=== PATIENT | male | born 1965 | race Hispanic/Latino ===

== ENCOUNTER 2017-12-10 08:56 | Inpatient (IN) | payer MEDICARE ==
[2017-12-10 09:23] VITALS: BMI 28.3
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
[2017-12-10] MEDS ORDERED: Vancomycin 1gm in NS 250ml 1 GM/250 ML BAG IVPB STA (09:59)
[2017-12-10] MEDS ORDERED: Piperacill/Tazo 4.5gm in NS 4.5 GM/100 ML BAG IVPB STA (09:59)
[2017-12-10 10:30] LABS: URINE BILIRUBIN NEGATIVE (NEGATIVE); URINE BLOOD LARGE (NEGATIVE); URINE GLUCOSE (UA) NEGATIVE (NEGATIVE); URINE LEUKOCYTE ESTERASE MODERATE Leu/uL (NEGATIVE); URINE PROTEIN 100 mg/dL (<30 mg/dL); URINE UROBILINOGEN 0.2 E.U./dL (<1 E.U./dL)
[2017-12-10 10:31] LABS: URINE APPEARANCE CLOUDY (CLEAR); URINE COLOR LIGHT YELLOW (YELLOW)
[2017-12-10 10:41] LABS: URINE BACTERIA MANY (NEG); URINE RBC TNTC /hpf (0-2)
[2017-12-10] MEDS ORDERED: Lactated Ringer's 1,000 ML IV SCH (10:45)
[2017-12-10 10:46] LABS: URINE AMORPHOUS SEDIMENT SMALL; URINE COARSE GRANULAR CAST TRACE /hpf (0-2)
[2017-12-10 10:47] LABS: URINE WBC 25 - 30 /hpf (0-6)
[2017-12-10 11:00] LABS: BASO # 0.01 K/mm3 (0.0-2.0); BASO % 0.1 % (0.0-3.0); EOS # 0.2 (0.0-0.7); EOS % 1.2 % (1.5-5.0); GRAN # 10.51 (1.4-6.5); GRAN % 78.2 % (50.0-68.0); HEMOGLOBIN 11.7 g/dL (14.0-18.0); LYMPH # 1.6 (1.2-3.4); LYMPH % 11.6 % (22.0-35.0); MEAN CORPUSCULAR HEMOGLOBIN 26.9 pg (25.0-35.0); MEAN CORPUSCULAR HGB CONC 32.4 g/dl (31.0-37.0); MEAN PLATELET VOLUME 8.7 fl (7.0-11.0); MONO # 1.2 (0.1-0.6); MONO % 8.9 % (1.0-6.0); RBC 4.35 10^6/uL (3.5-6.1); RED CELL DISTRIBUTION WIDTH 16.5 % (11.5-14.5); WHITE BLOOD COUNT 13.4 10^3/ul (4.5-11.0)
[2017-12-10 11:13] LABS: VENOUS BLOOD GAS BASE EXCESS 1.2 mmol/L (0.0-2.0); VENOUS BLOOD GAS PO2 39 mm/Hg (30-55); VENOUS BLOOD PH 7.41 (7.32-7.43)
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
[2017-12-10 11:37] LABS: ALB/GLOB RATIO 0.9 (1.1-1.8); ALBUMIN 3.1 g/dL (3.0-4.8); ALT/SGPT 37 U/L (7-56); AST/SGOT 25 U/L (17-59); BLOOD UREA NITROGEN 20 mg/dL (7-21); CALCIUM 8.4 mg/dL (8.4-10.5); GFR AFRICAN-AMERICAN > 60; GFR NON-AFRICAN AMERICAN > 60
[2017-12-10 11:48] LABS: TROPONIN I < 0.01 ng/mL
[2017-12-10] MEDS ORDERED: Vancomycin 500mg in NS 500 MG/100 ML BAG IVPB SCH (12:45)
--- NOTE | 2017-12-10 14:49 | CT ---
PROCEDURE: CT Abdomen and Pelvis with contrast HISTORY: Scrotal ulcer COMPARISON: None. TECHNIQUE: Contrast dose: 150 cc of Omni 350 Radiation dose: Total exam DLP = 992 mGy-cm. This CT exam was performed using one or more of the following dose reduction techniques: Automated exposure control, adjustment of the mA and/or kV according to patient size, and/or use of iterative reconstruction technique. FINDINGS: LOWER THORAX: Unremarkable. LIVER: Unremarkable. No gross lesion or ductal dilatation. GALLBLADDER AND BILE DUCTS: Gallbladder removed. Dilated common duct consistent with prior cholecystectomy. PANCREAS: Unremarkable. No gross lesion or ductal dilatation. SPLEEN: Unremarkable. ADRENALS: Unremarkable. No mass. KIDNEYS AND URETERS: Unremarkable. No hydronephrosis. No solid mass. VASCULATURE: Unremarkable. No aortic aneurysm. BOWEL: Unremarkable. No obstruction. No gross mural thickening. APPENDIX: Normal appendix. PERITONEUM: Unremarkable. No free fluid. No free air. LYMPH NODES: Unremarkable. No enlarged lymph nodes. BLADDER: Suprapubic catheter. REPRODUCTIVE: There is some skin thickening in the scrotum but no discrete abscess. There is a large amount of subcutaneous inflammation in the right gluteal region without a discrete abscess. BONES: No acute fracture. OTHER FINDINGS: None. IMPRESSION: There is some skin thickening in the scrotum but no discrete abscess. There is a large amount of subcutaneous inflammation in the right gluteal region without a discrete abscess.
--- NOTE | 2017-12-10 17:26 | CARD ---
APPROVED REPORT EKG Measurement Heart [id number] <Conclusion> Normal sinus rhythm Prolonged QT Abnormal ECG
[2017-12-10] MEDS ORDERED: Potassium Chloride 20 mEq ER Tab PO ONE (17:52)
[2017-12-10] MEDS ORDERED: Pneumococcal 23-Valent Vaccine IM ONE (18:02)
[2017-12-10] MEDS ORDERED: Influenza Vaccine 60 mcg/0.5 mL SYR (4YR UP) IM ONE (18:02)
[2017-12-10] MEDS: Sodium Chloride 0.45% 1,000 ML IV SCH (18:21)
[2017-12-10] MEDS: Piperacillin/Tazobact 3.375 gm 100 ML IVPB SCH (18:24)
[2017-12-10] MEDS: Nystatin 100,000 Units/gm Topical Pow(15 gm) TOP PRN (20:49)
[2017-12-10] MEDS: Alum-Mag Hydrox-Simethicone Susp (30 mL) PO SCH (21:26)
[2017-12-11] MEDS: Piperacillin/Tazobact 3.375 gm 100 ML IVPB SCH ×5 (00:35→23:18)
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
[2017-12-11 07:19] LABS: HEMOGLOBIN 10.8 g/dL (14.0-18.0); MEAN CELL VOLUME 83.6 fl (80.0-105.0); MEAN CORPUSCULAR HEMOGLOBIN 26.1 pg (25.0-35.0); MEAN CORPUSCULAR HGB CONC 31.2 g/dl (31.0-37.0); MEAN PLATELET VOLUME 8.7 fl (7.0-11.0); RBC 4.14 10^6/uL (3.5-6.1); RED CELL DISTRIBUTION WIDTH 16.6 % (11.5-14.5); WHITE BLOOD COUNT 11.9 10^3/ul (4.5-11.0)
[2017-12-11 07:54] LABS: ALB/GLOB RATIO 0.9 (1.1-1.8); ALBUMIN 3.1 g/dL (3.0-4.8); ALT/SGPT 44 U/L (7-56); AST/SGOT 35 U/L (17-59); BLOOD UREA NITROGEN 13 mg/dL (7-21); GFR AFRICAN-AMERICAN > 60; GFR NON-AFRICAN AMERICAN > 60
--- NOTE | 2017-12-11 08:46 | CP.PCM.PN ---
Subjective - Date & Time of Evaluation Date of Evaluation: 12/11/17 Time of Evaluation: 08:43 - Subjective Subjective: Surgery: Dr. Nelson Patient reports feeling much better than yesterday. Still with some sweats but no fever or chills. He denies n/v. NO acute events overnight. Objective - Vital Signs/Intake and Output Vital Signs (last 24 hours): Temp Pulse Resp BP Pulse Ox 98.2 F 76 20 129/75 94 L 12/11/17 06:00 12/10/17 17:38 12/11/17 06:00 12/10/17 17:38 12/11/17 06:00 Intake and Output: 12/11/17 12/11/17 06:59 18:59 Intake Total 1500 Output Total 1125 Balance 375 - Medications Medications: Current Medications Acetaminophen (Tylenol 325mg Tab) 650 mg PO Q4H PRN PRN Reason: Pain, moderate (4-7) Last Admin: 12/10/17 20:48 Dose: 650 mg Al Hydrox/Mg Hydrox/Simethicone (Maalox Plus 30 Ml) 30 ml PO HS [facility] Last Admin: 12/10/17 21:26 Dose: 30 ml Baclofen (Lioresal) 40 mg PO QID [facility] Last Admin: 12/10/17 21:29 Dose: 40 mg Diphenhydramine HCl (Benadryl) 50 mg PO HS PRN PRN Reason: Insomnia Last Admin: 12/10/17 20:48 Dose: 50 mg Piperacillin Sod/Tazobactam Sod (Zosyn 3.375 In Ns 100ml) 100 mls @ 200 mls/hr IVPB Q6 [facility] PRN Reason: Protocol Stop: 12/17/17 18:01 Last Admin: 12/11/17 06:45 Dose: 200 mls/hr Sodium Chloride (Sodium Chloride 0.45%) 1,000 mls @ 40 mls/hr IV .Q24H [facility] Last Admin: 12/10/17 18:21 Dose: 40 mls/hr Vancomycin HCl 1.5 gm/ Sodium (Chloride) 250 mls @ 167 mls/hr IVPB Q12H [facility] PRN Reason: Protocol Last Admin: 12/11/17 08:05 Dose: 167 mls/hr Nystatin (Nystop Topical Powder) 0 gm TOP DAILY PRN PRN Reason: Rash Last Admin: 12/10/17 20:49 Dose: 1 appl Nystatin (Nystop Topical Powder) 0 gm TOP Q8H [facility] Ondansetron HCl (Zofran Inj) 4 mg IVP Q4H PRN PRN Reason: Nausea/Vomiting Last Admin: 12/10/17 18:40 Dose: 4 mg Rivaroxaban (Xarelto) 15 mg PO DAILY [facility] PRN Reason: Protocol Sertraline HCl (Zoloft) 200 mg PO DAILY [facility] - Labs Labs: 12/11/17 07:00 12/11/17 07:00 - Constitutional Appears: Non-toxic, No Acute Distress - Head Exam Head Exam: ATRAUMATIC, NORMOCEPHALIC - Eye Exam Eye Exam: EOMI, Normal appearance - ENT Exam ENT Exam: Mucous Membranes Moist - Respiratory Exam Respiratory Exam: NORMAL BREATHING PATTERN. absent: Respiratory Distress - Cardiovascular Exam Cardiovascular Exam: REGULAR RHYTHM. absent: Tachycardia - GI/Abdominal Exam GI & Abdominal Exam: Soft. absent: Distended, Tenderness Additional comments: suprapubic catheter in place, no drainage LLQ colostomy with soft stool output Mucous fistula pink patent and nonproductive - Back Exam Additional comments: scrotum and perineum excoriations improved with nystatin powder, no abscess palpated - Neurological Exam Neurological Exam: Alert, Awake - Psychiatric Exam Psychiatric exam: Normal Affect, Normal Mood Assessment and Plan - Assessment and Plan (Free Text) Assessment: 52 y/o male w/ UTI and perineum excoriations Plan: -keep perineum clean and dry, nystatin powder to area -turn Q2 -cont abx -no acute surgical intervention at this time -medical management per primary -further recs per Dr. Nelson [facility] PGY3
[2017-12-11] MEDS: Nystatin 100,000 Units/gm Topical Pow(15 gm) TOP PRN (09:28)
[2017-12-11] MEDS ORDERED: Potassium Chloride 20 mEq ER Tab PO ONE (12:29)
[2017-12-11] MEDS: Nystatin 100,000 Units/gm Topical Pow(15 gm) TOP SCH ×2 (13:22→21:08)
--- NOTE | 2017-12-11 14:59 | PN ---
DATE: SUBJECTIVE: I saw him sitting up in bed. He is eating his lunch. He is feeling well. No complaints. His are coming in. He is getting IV antibiotics. He is in good spirits. He is in no pain. PHYSICAL EXAMINATION: VITAL SIGNS: He is a 98.2 temperature, 20 respiratory rate, 129/75 blood pressure, 94% O2 sat on room air. HEENT: Head is atraumatic, normocephalic. Throat is moist. NECK: Supple. HEART: Regular rate. LUNGS: Clear to auscultation. ABDOMEN: Soft, obese, nontender. EXTREMITIES: No edema. SKIN: He has got a scrotal redness and inflammation. MEDICATIONS: He is on Benadryl, Lioresal, Maalox, nystatin, IV fluids, Tylenol, vancomycin IV, Xarelto, Zofran, Zoloft, and Zosyn IV. He has a urine that is positive. He has a 139 sodium; potassium of 3.5, I ordered potassium for him; BUN 13; creatinine 0.9; GFR is greater than 60; sugar is 115; calcium is 9. Total bilirubin is 1.2, AST is 35, ALT is 44, alkaline [id number]. Troponin I less than 0.01. Total protein 6.8. He has 11.9 white count, it is coming down, it was 13.4, doing better; 10.8 hemoglobin; 34.6 hematocrit with 196 platelets. He had a gram-positive cocci, gram-negative rods in the urine. He is being seen by Surgery and Infectious Disease. Urology was consulted. We will continue aggressive treatment and care with him with his UTI and his scrotal wound. Saeed Nettles DO MTDFeng
[2017-12-11] MEDS ORDERED: Zinc Oxide Topical 40% Oint (Desitin) TOP PRN (16:33)
[2017-12-11] MEDS: Sodium Chloride 0.45% 1,000 ML IV SCH (17:59)
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
[2017-12-11] MEDS: Alum-Mag Hydrox-Simethicone Susp (30 mL) PO SCH (21:08)
[2017-12-12] MEDS: Piperacillin/Tazobact 3.375 gm 100 ML IVPB SCH ×3 (05:45→18:01)
--- NOTE | 2017-12-12 11:32 | CP.PCM.PN ---
Subjective - Date & Time of Evaluation Date of Evaluation: 12/12/17 Time of Evaluation: 11:29 - Subjective Subjective: Surgery: Dr. Nelson Patient feeling better. Asking when he can be discharged. Patient reports local perineal care being done. Denies f/c/n/v. Objective - Vital Signs/Intake and Output Vital Signs (last 24 hours): Temp Pulse Resp BP Pulse Ox 98.4 F 79 20 129/75 95 12/12/17 06:00 12/12/17 06:00 12/12/17 06:00 12/10/17 17:38 12/12/17 06:00 Intake and Output: 12/12/17 12/12/17 06:59 18:59 Intake Total Output Total Balance - Medications Medications: Current Medications Acetaminophen (Tylenol 325mg Tab) 650 mg PO Q4H PRN PRN Reason: Pain, moderate (4-7) Last Admin: 12/10/17 20:48 Dose: 650 mg Al Hydrox/Mg Hydrox/Simethicone (Maalox Plus 30 Ml) 30 ml PO HS [facility] Last Admin: 12/11/17 21:08 Dose: 30 ml Baclofen (Lioresal) 40 mg PO QID [facility] Last Admin: 12/12/17 09:28 Dose: 40 mg Diphenhydramine HCl (Benadryl) 50 mg PO HS PRN PRN Reason: Insomnia Last Admin: 12/10/17 20:48 Dose: 50 mg Piperacillin Sod/Tazobactam Sod (Zosyn 3.375 In Ns 100ml) 100 mls @ 200 mls/hr IVPB Q6 [facility] PRN Reason: Protocol Stop: 12/17/17 18:01 Last Admin: 12/12/17 05:45 Dose: 200 mls/hr Sodium Chloride (Sodium Chloride 0.45%) 1,000 mls @ 40 mls/hr IV .Q24H [facility] Last Admin: 12/11/17 17:59 Dose: Not Given Vancomycin HCl 1.5 gm/ Sodium (Chloride) 250 mls @ 167 mls/hr IVPB Q12H [facility] PRN Reason: Protocol Last Admin: 12/12/17 09:27 Dose: 167 mls/hr Nystatin (Nystop Topical Powder) 0 gm TOP DAILY PRN PRN Reason: Rash Last Admin: 12/11/17 09:28 Dose: 1 appl Nystatin (Nystop Topical Powder) 0 gm TOP Q8H [facility] Last Admin: 12/11/17 21:08 Dose: 1 applic Ondansetron HCl (Zofran Inj) 4 mg IVP Q4H PRN PRN Reason: Nausea/Vomiting Last Admin: 12/10/17 18:40 Dose: 4 mg Petrolatum (Desitin Maximum Strength Topical 40% Oint) 0 gm TOP Q4H PRN PRN Reason: Rash Rivaroxaban (Xarelto) 15 mg PO DAILY [facility] PRN Reason: Protocol Last Admin: 12/12/17 09:28 Dose: 15 mg Sertraline HCl (Zoloft) 200 mg PO DAILY [facility] Last Admin: 12/12/17 09:28 Dose: 200 mg - Labs Labs: 12/11/17 07:00 12/11/17 07:00 - Constitutional Appears: Non-toxic, No Acute Distress - Head Exam Head Exam: ATRAUMATIC, NORMOCEPHALIC - Eye Exam Eye Exam: EOMI, Normal appearance - ENT Exam ENT Exam: Mucous Membranes Moist - Respiratory Exam Respiratory Exam: NORMAL BREATHING PATTERN. absent: Respiratory Distress - Cardiovascular Exam Cardiovascular Exam: REGULAR RHYTHM. absent: Tachycardia - GI/Abdominal Exam Additional comments: suprapubic catheter no leakage colostomy functioning mucous fistula pink patent - Rectal Exam Additional comments: perineum remains moderate excoriated no fluid collection palpable in scrotum or perineum blisters noted to perineum, unruptured Assessment and Plan - Assessment and Plan (Free Text) Assessment: 52 y/o male with UTI and scrotal/perineum excoriation Plan: -cont powder and desitin cream to perineum BID -keep area clean and dry -again no fluid collection palpable for drainage, CT scan reviewed and no definite fluid collection visualized. Suprapubic gonzalez noted with balloon expanded. -cont abx -reg diet -no surgical intervention at this time -d/w Dr. Omar Perez PGY3
[2017-12-12] MEDS: Nystatin 100,000 Units/gm Topical Pow(15 gm) TOP SCH ×4 (14:43→22:00)
--- NOTE | 2017-12-12 15:45 | PN ---
DATE: SUBJECTIVE: I saw him resting comfortably in bed. IV fluids are running. He has not been out of bed to chair yet. He is eating his breakfast. He is in good spirits. No pain. MEDICATIONS: He is on Benadryl, Desitin, Lioresal, Maalox, nystatin powder, IV fluids, Tylenol, vancomycin IV, Xarelto, Zofran, Zoloft, and Zosyn IV. PHYSICAL EXAMINATION: VITAL SIGNS: He has 98.4 temperature, 79 pulse, 20 respiratory rate, 95% O2 sat on room air. HEENT: Head is atraumatic, normocephalic. HEART: Regular rate. LUNGS: Decreased breath sounds, but clear. ABDOMEN: Soft, obese, nontender. Positive bowel sounds. EXTREMITIES: Paralyzed, but no edema. Also, his groin has got a possible fluid collection. Dr. Ayoub wants Surgery to put a needle on that and aspirate. We will see if they could arrange that. LABORATORY DATA: He has an 11.9 white count, better; 10.8 hemoglobin; 34.6 hematocrit; 496 platelets, is improving. Sodium 139; potassium of 3.5, we have given some potassium; BUN 13; creatinine 0.9; GFR is greater than 60; sugar is 115; calcium is 9. Total bilirubin is 1.2, AST is 35, ALT is 44, alkaline phosphatase 126. He has a 6.8 total protein. He does have a urinary tract infection. He is being seen by Infectious Disease and Surgery, and we will continue aggressive treatment and care on this nice man, Сергей Damico. Saeed Nettles DO
[2017-12-12] MEDS: Nystatin 100,000 Units/gm Topical Pow(15 gm) TOP PRN (17:42)
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
[2017-12-12] MEDS: Sodium Chloride 0.45% 1,000 ML IV SCH (18:01)
[2017-12-12] MEDS: Alum-Mag Hydrox-Simethicone Susp (30 mL) PO SCH (21:28)
[2017-12-13] MEDS: Piperacillin/Tazobact 3.375 gm 100 ML IVPB SCH ×4 (00:19→18:18)
[2017-12-13] MEDS: Nystatin 100,000 Units/gm Topical Pow(15 gm) TOP SCH ×3 (05:55→21:23)
[2017-12-13 07:26] LABS: HEMOGLOBIN 10.6 g/dL (14.0-18.0); MEAN CELL VOLUME 84.1 fl (80.0-105.0); MEAN CORPUSCULAR HEMOGLOBIN 26.4 pg (25.0-35.0); MEAN CORPUSCULAR HGB CONC 31.4 g/dl (31.0-37.0); MEAN PLATELET VOLUME 8.6 fl (7.0-11.0); RBC 4.02 10^6/uL (3.5-6.1); RED CELL DISTRIBUTION WIDTH 16.4 % (11.5-14.5); WHITE BLOOD COUNT 11.8 10^3/ul (4.5-11.0)
[2017-12-13 07:31] LABS: ALB/GLOB RATIO 0.8 (1.1-1.8); ALBUMIN 3.2 g/dL (3.0-4.8); ALT/SGPT 42 U/L (7-56); AST/SGOT 36 U/L (17-59); BLOOD UREA NITROGEN 15 mg/dL (7-21); CALCIUM 9.1 mg/dL (8.4-10.5); GFR AFRICAN-AMERICAN > 60; GFR NON-AFRICAN AMERICAN 53
--- NOTE | 2017-12-13 09:26 | CP.PCM.PN ---
Subjective - Date & Time of Evaluation Date of Evaluation: 12/13/17 Time of Evaluation: 09:23 - Subjective Subjective: Surgery PT s&e. NAEON. Denies scrotal pain. Denies F/C/N/V/D/CP/SOB. Unable to ambulate. Objective - Vital Signs/Intake and Output Vital Signs (last 24 hours): Temp Pulse Resp BP Pulse Ox 97.8 F 78 18 129/75 95 12/12/17 16:17 12/12/17 16:17 12/12/17 16:17 12/10/17 17:38 12/12/17 06:00 Intake and Output: 12/13/17 12/13/17 06:59 18:59 Intake Total 1860 Output Total 1100 Balance 760 - Medications Medications: Current Medications Acetaminophen (Tylenol 325mg Tab) 650 mg PO Q4H PRN PRN Reason: Pain, moderate (4-7) Last Admin: 12/10/17 20:48 Dose: 650 mg Al Hydrox/Mg Hydrox/Simethicone (Maalox Plus 30 Ml) 30 ml PO HS [facility] Last Admin: 12/12/17 21:28 Dose: 30 ml Baclofen (Lioresal) 40 mg PO QID [facility] Last Admin: 12/12/17 21:29 Dose: 40 mg Diphenhydramine HCl (Benadryl) 50 mg PO HS PRN PRN Reason: Insomnia Last Admin: 12/12/17 21:29 Dose: 50 mg Piperacillin Sod/Tazobactam Sod (Zosyn 3.375 In Ns 100ml) 100 mls @ 200 mls/hr IVPB Q6 [facility] PRN Reason: Protocol Stop: 12/17/17 18:01 Last Admin: 12/13/17 05:56 Dose: 200 mls/hr Sodium Chloride (Sodium Chloride 0.45%) 1,000 mls @ 40 mls/hr IV .Q24H [facility] Last Admin: 12/12/17 18:01 Dose: Not Given Vancomycin HCl 1.5 gm/ Sodium (Chloride) 250 mls @ 167 mls/hr IVPB Q12H [facility] PRN Reason: Protocol Last Admin: 12/13/17 08:33 Dose: 167 mls/hr Nystatin (Nystop Topical Powder) 0 gm TOP DAILY PRN PRN Reason: Rash Last Admin: 12/12/17 17:42 Dose: 1 appl Nystatin (Nystop Topical Powder) 0 gm TOP Q8H [facility] Last Admin: 12/13/17 05:55 Dose: 1 applic Ondansetron HCl (Zofran Inj) 4 mg IVP Q4H PRN PRN Reason: Nausea/Vomiting Last Admin: 12/10/17 18:40 Dose: 4 mg Petrolatum (Desitin Maximum Strength Topical 40% Oint) 0 gm TOP Q4H PRN PRN Reason: Rash Last Admin: 12/12/17 17:44 Dose: 1 applic Rivaroxaban (Xarelto) 15 mg PO DAILY [facility] PRN Reason: Protocol Last Admin: 12/12/17 09:28 Dose: 15 mg Sertraline HCl (Zoloft) 200 mg PO DAILY [facility] Last Admin: 12/12/17 09:28 Dose: 200 mg - Labs Labs: 12/13/17 06:40 12/13/17 06:40 - Constitutional Appears: No Acute Distress, Chronically Ill - Head Exam Head Exam: ATRAUMATIC, NORMAL INSPECTION, NORMOCEPHALIC - Eye Exam Eye Exam: EOMI, Normal appearance, PERRL Pupil Exam: NORMAL ACCOMODATION, PERRL - ENT Exam ENT Exam: Mucous Membranes Moist, Normal Exam - Neck Exam Neck Exam: Full ROM, Normal Inspection. absent: Lymphadenopathy - Respiratory Exam Respiratory Exam: Clear to Ausculation Bilateral, NORMAL BREATHING PATTERN - Cardiovascular Exam Cardiovascular Exam: REGULAR RHYTHM, +S1, +S2. absent: Murmur - GI/Abdominal Exam GI & Abdominal Exam: Soft, Normal Bowel Sounds. absent: Distended, Firm, Guarding, Tenderness - Rectal Exam Rectal Exam: NORMAL INSPECTION - Exam Exam: Scrotal Swelling. absent: NORMAL INSPECTION (Suprapubic catheter in place) External exam: Erythema (Non fluctuant. MIld eryhtema. Non tender. ) - Extremities Exam Extremities Exam: absent: Full ROM - Back Exam Back Exam: NORMAL INSPECTION - Neurological Exam Neurological Exam: Alert, Awake, Oriented x3. absent: Normal Gait - Psychiatric Exam Psychiatric exam: Normal Affect, Normal Mood - Skin Skin Exam: Dry, Erythema, Intact, Warm Assessment and Plan - Assessment and Plan (Free Text) Assessment: 52 y/o male with UTI and scrotal/perineum excoriation: Improving Plan: -cont w Nystatin powder and desitin cream to perineum BID -keep area clean and dry -again no fluid collection palpable for drainage, CT scan reviewed and no definite fluid collection visualized. Suprapubic gonzalez noted with balloon expanded. -cont abx -reg diet -no surgical intervention at this time -Will d/w Dr. Nelson
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
[2017-12-13] MEDS: Sodium Chloride 0.45% 1,000 ML IV SCH (16:14)
[2017-12-13] MEDS: Alum-Mag Hydrox-Simethicone Susp (30 mL) PO SCH (21:24)
[2017-12-14] MEDS: Piperacillin/Tazobact 3.375 gm 100 ML IVPB SCH ×4 (00:43→18:49)
[2017-12-14 07:13] LABS: HEMOGLOBIN 10.7 g/dL (14.0-18.0); MEAN CELL VOLUME 84.8 fl (80.0-105.0); MEAN CORPUSCULAR HEMOGLOBIN 26.2 pg (25.0-35.0); MEAN CORPUSCULAR HGB CONC 30.9 g/dl (31.0-37.0); MEAN PLATELET VOLUME 8.6 fl (7.0-11.0); RBC 4.08 10^6/uL (3.5-6.1); RED CELL DISTRIBUTION WIDTH 16.4 % (11.5-14.5); WHITE BLOOD COUNT 12.3 10^3/ul (4.5-11.0)
[2017-12-14 07:36] LABS: ALB/GLOB RATIO 0.8 (1.1-1.8); ALBUMIN 3.4 g/dL (3.0-4.8); ALT/SGPT 39 U/L (7-56); AST/SGOT 28 U/L (17-59); BLOOD UREA NITROGEN 13 mg/dL (7-21); GFR AFRICAN-AMERICAN > 60; GFR NON-AFRICAN AMERICAN 58
--- NOTE | 2017-12-14 08:30 | CP.PCM.PN ---
Subjective - Date & Time of Evaluation Date of Evaluation: 12/14/17 Time of Evaluation: 08:27 - Subjective Subjective: Surgery PT s&e. NAEON. Denies F/V/D/CP/SOB. Reports chills. Pain controlled. Objective - Vital Signs/Intake and Output Vital Signs (last 24 hours): Temp Pulse Resp BP Pulse Ox 98 F 75 22 127/61 96 12/14/17 07:31 12/14/17 07:31 12/14/17 07:31 12/14/17 07:31 12/14/17 07:31 Intake and Output: 12/14/17 12/14/17 06:59 18:59 Intake Total 1080 Output Total 1800 Balance -720 - Medications Medications: Current Medications Acetaminophen (Tylenol 325mg Tab) 650 mg PO Q4H PRN PRN Reason: Pain, moderate (4-7) Last Admin: 12/10/17 20:48 Dose: 650 mg Al Hydrox/Mg Hydrox/Simethicone (Maalox Plus 30 Ml) 30 ml PO HS [facility] Last Admin: 12/13/17 21:24 Dose: 30 ml Baclofen (Lioresal) 40 mg PO QID [facility] Last Admin: 12/13/17 21:22 Dose: 40 mg Diphenhydramine HCl (Benadryl) 50 mg PO HS PRN PRN Reason: Insomnia Last Admin: 12/14/17 00:16 Dose: 50 mg Piperacillin Sod/Tazobactam Sod (Zosyn 3.375 In Ns 100ml) 100 mls @ 200 mls/hr IVPB Q6 [facility] PRN Reason: Protocol Stop: 12/17/17 18:01 Last Admin: 12/14/17 06:04 Dose: 200 mls/hr Sodium Chloride (Sodium Chloride 0.45%) 1,000 mls @ 40 mls/hr IV .Q24H [facility] Last Admin: 12/13/17 16:14 Dose: 40 mls/hr Vancomycin HCl 1.5 gm/ Sodium (Chloride) 250 mls @ 167 mls/hr IVPB Q12H [facility] PRN Reason: Protocol Last Admin: 12/13/17 08:33 Dose: 167 mls/hr Nystatin (Nystop Topical Powder) 0 gm TOP DAILY PRN PRN Reason: Rash Last Admin: 12/12/17 17:42 Dose: 1 appl Nystatin (Nystop Topical Powder) 0 gm TOP Q8H [facility] Last Admin: 12/13/17 21:23 Dose: 1 applic Ondansetron HCl (Zofran Inj) 4 mg IVP Q4H PRN PRN Reason: Nausea/Vomiting Last Admin: 12/10/17 18:40 Dose: 4 mg Petrolatum (Desitin Maximum Strength Topical 40% Oint) 0 gm TOP Q4H PRN PRN Reason: Rash Last Admin: 12/12/17 17:44 Dose: 1 applic Rivaroxaban (Xarelto) 15 mg PO DAILY [facility] PRN Reason: Protocol Last Admin: 12/13/17 10:44 Dose: 15 mg Sertraline HCl (Zoloft) 200 mg PO DAILY [facility] Last Admin: 12/13/17 10:44 Dose: 200 mg - Labs Labs: 12/14/17 06:30 12/14/17 06:30 - Constitutional Appears: No Acute Distress - Head Exam Head Exam: ATRAUMATIC, NORMAL INSPECTION, NORMOCEPHALIC - Eye Exam Eye Exam: EOMI, Normal appearance, PERRL Pupil Exam: NORMAL ACCOMODATION, PERRL - ENT Exam ENT Exam: Mucous Membranes Moist, Normal Exam - Neck Exam Neck Exam: Full ROM, Normal Inspection. absent: Lymphadenopathy - Respiratory Exam Respiratory Exam: Clear to Ausculation Bilateral, NORMAL BREATHING PATTERN - Cardiovascular Exam Cardiovascular Exam: REGULAR RHYTHM, +S1, +S2. absent: Murmur - GI/Abdominal Exam GI & Abdominal Exam: Soft, Normal Bowel Sounds. absent: Distended, Firm, Guarding, Rigid, Tenderness - Rectal Exam Rectal Exam: NORMAL INSPECTION. absent: Black Stool, Bloody Stool, Hemorrhoids , Fecal Impaction - Exam Exam: absent: NORMAL INSPECTION Additional comments: Scrotum: INdurated 3x4cm. No fluctuant. No eryhtema. - Extremities Exam Extremities Exam: Normal Inspection. absent: Full ROM - Back Exam Back Exam: NORMAL INSPECTION - Neurological Exam Neurological Exam: Alert, Awake, Oriented x3. absent: Normal Gait - Psychiatric Exam Psychiatric exam: Normal Affect, Normal Mood - Skin Skin Exam: Dry, Intact, Normal Color, Warm. absent: Erythema Assessment and Plan - Assessment and Plan (Free Text) Assessment: 52 y/o male with UTI and scrotal/perineum induration: Improving. No discharge, no fluctuant Urine cx: Ecoli, MRSA Plan: -Local wound care -cont w Nystatin powder and desitin cream to perineum -keep area clean and dry -again no fluid collection palpable for drainage, CT scan reviewed and no definite fluid collection visualized. Suprapubic gonzalez noted with balloon expanded. -cont abx -reg diet -no surgical intervention at this time d/w Dr. Nelson
[2017-12-14] MEDS: Nystatin 100,000 Units/gm Topical Pow(15 gm) TOP SCH ×2 (14:57→22:48)
--- NOTE | 2017-12-14 15:06 | PN ---
DATE: 12/14/2017 SUBJECTIVE: I saw him in his bed this morning. He is easily arousable and he is confused this morning. He did not know where he was after reoriented to [place]. He is pleasant. No pain. He is hungry. OBJECTIVE: VITAL SIGNS: Temperature 98, 75 pulse, 127/61 blood pressure, 22 respiratory rate, 96% O2 sat on room air. HEENT: His head is atraumatic, normocephalic. Extraocular muscles are intact. Throat is moist. NECK: Supple. HEART: Regular rate. LUNGS: Decreased breath sounds, but clear. ABDOMEN: Soft, obese. EXTREMITIES: No edema groin cellulitis. MEDICATIONS: He is currently on Benadryl, Desitin, Lioresal, Maalox, nystatin, IV fluids, Tylenol, vancomycin IV, Xarelto, Zofran, Zoloft, and Zosyn. LABORATORY DATA: He had blood tests. He has a 12.3 white count, still elevated white count He has 10.7 hemoglobin, 34.6 hematocrit with 309 platelets. He has 144 sodium, potassium of 3.6. BUN 13, creatinine 1.3. GFR is 68. Sugar is 94. Calcium is 9. Total bili is 0.9, AST is 28, ALT is 39, alk phos is 127, total protein is 7.4. Urine was positive for urinary tract infections and negative HIV, nonreactive. Overall, his urine culture showed methicillin-resistant Staphylococcus aureus and E. coli. He is confused. I called in Neurology and Psychiatry to help us. He has already been seen by Infectious Disease and Surgery. We will continue with aggressive treatment and care. We will check his labs tomorrow. Also, this change in mentation and confusion . Saeed Nettles DO [facility]
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
[2017-12-14] MEDS: Sodium Chloride 0.45% 1,000 ML IV SCH (21:17)
[2017-12-14] MEDS: Alum-Mag Hydrox-Simethicone Susp (30 mL) PO SCH (22:07)
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
[2017-12-15] MEDS: Piperacillin/Tazobact 3.375 gm 100 ML IVPB SCH ×5 (00:45→19:15)
[2017-12-15] MEDS: Nystatin 100,000 Units/gm Topical Pow(15 gm) TOP SCH ×3 (06:11→22:17)
[2017-12-15 06:32] LABS: HEMOGLOBIN 10.2 g/dL (14.0-18.0); MEAN CELL VOLUME 84.2 fl (80.0-105.0); MEAN CORPUSCULAR HEMOGLOBIN 26.4 pg (25.0-35.0); MEAN CORPUSCULAR HGB CONC 31.3 g/dl (31.0-37.0); MEAN PLATELET VOLUME 8.4 fl (7.0-11.0); RBC 3.87 10^6/uL (3.5-6.1); RED CELL DISTRIBUTION WIDTH 16.4 % (11.5-14.5); WHITE BLOOD COUNT 11.5 10^3/ul (4.5-11.0)
[2017-12-15 07:10] LABS: ALB/GLOB RATIO 0.8 (1.1-1.8); ALBUMIN 3.2 g/dL (3.0-4.8); ALT/SGPT 35 U/L (7-56); AST/SGOT 32 U/L (17-59); BLOOD UREA NITROGEN 12 mg/dL (7-21); CALCIUM 8.8 mg/dL (8.4-10.5); GFR AFRICAN-AMERICAN > 60; GFR NON-AFRICAN AMERICAN > 60
[2017-12-15 07:42] VITALS: RESP 20
[2017-12-15] MEDS ORDERED: Potassium Chloride 20 mEq ER Tab PO ONE (07:56)
--- NOTE | 2017-12-15 08:33 | CT ---
PROCEDURE: CT HEAD WITHOUT CONTRAST. HISTORY: baseline mental evaluation COMPARISON: None available. TECHNIQUE: Axial computed tomography images were obtained through the head/brain without intravenous contrast. Radiation dose: Total exam DLP = 1778 mGy-cm. This CT exam was performed using one or more of the following dose reduction techniques: Automated exposure control, adjustment of the mA and/or kV according to patient size, and/or use of iterative reconstruction technique. FINDINGS: HEMORRHAGE: No intracranial hemorrhage. BRAIN: No mass effect or edema. No atrophy or chronic microvascular ischemic changes. VENTRICLES: Unremarkable. No hydrocephalus. CALVARIUM: Unremarkable. PARANASAL SINUSES: Unremarkable as visualized. No significant inflammatory changes. MASTOID AIR CELLS: Unremarkable as visualized. No inflammatory changes. OTHER FINDINGS: None. IMPRESSION: No acute intracranial findings
--- NOTE | 2017-12-15 16:21 | PN ---
DATE: 12/15/2017 SUBJECTIVE: He is doing a little bit better this morning than yesterday. He was quite confused yesterday, but today, he is doing better. He is resting in bed. He is using the BiPAP. He is on IV antibiotics the hospital, he had a Neurological consult, Psychiatry consult was confused and the head CT is pending. Psychiatry signed off for the CAT scan of the head. When he gets the flight to go home, we can discontinue the IV fluids and put him on Bactrim. OBJECTIVE: VITAL SIGNS: He has a 99.2 temp, 91 pulse, 117/62 blood pressure, 20 respiratory rate, 94% O2 sat on BiPAP. HEENT: His head is atraumatic, normocephalic. HEART: Regular rate. LUNGS: Decreased breath sounds, but clear. ABDOMEN: Soft, obese. EXTREMITIES: Paralyzed from paraplegia. LABORATORY DATA: He has 11.5 white count, came down a little bit; 10.2 hemoglobin; 32.6 hematocrit with 308 platelets. 142 sodium; potassium 3.4, gave him potassium today. BUN 12, creatinine 1.2. GFR is greater than 60. Sugar is 89. Calcium is 8.8. Total bili is 0.7, AST is 32, ALT is 35, alk phos 115. ASSESSMENT AND PLAN: He had a urinary tract infection, scrotal wound infection, change in mentation. I am hoping that in the next 24 hours, we can discharge him back to CAT scan of the head. Saeed Nettles DO [facility]
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
[2017-12-15] MEDS: Alum-Mag Hydrox-Simethicone Susp (30 mL) PO SCH (22:14)
[2017-12-16] MEDS: Nystatin 100,000 Units/gm Topical Pow(15 gm) TOP SCH (05:30)
[2017-12-16] MEDS: Piperacillin/Tazobact 3.375 gm 100 ML IVPB SCH ×3 (05:31→12:31)
[2017-12-16 07:02] LABS: HEMOGLOBIN 11.1 g/dL (14.0-18.0); MEAN CELL VOLUME 83.7 fl (80.0-105.0); MEAN CORPUSCULAR HEMOGLOBIN 26.2 pg (25.0-35.0); MEAN CORPUSCULAR HGB CONC 31.4 g/dl (31.0-37.0); MEAN PLATELET VOLUME 8.5 fl (7.0-11.0); RBC 4.23 10^6/uL (3.5-6.1); RED CELL DISTRIBUTION WIDTH 16.4 % (11.5-14.5); WHITE BLOOD COUNT 10.1 10^3/ul (4.5-11.0)
[2017-12-16 07:19] LABS: ALB/GLOB RATIO 0.8 (1.1-1.8); ALBUMIN 3.3 g/dL (3.0-4.8); ALT/SGPT 36 U/L (7-56); AST/SGOT 39 U/L (17-59); BLOOD UREA NITROGEN 11 mg/dL (7-21); CALCIUM 9.2 mg/dL (8.4-10.5); GFR AFRICAN-AMERICAN > 60; GFR NON-AFRICAN AMERICAN 58
[2017-12-16 07:32] VITALS: BP 150/88; PULSE 83; TEMP 97.3; O2SAT 93
--- NOTE | 2017-12-17 06:38 | DS ---
HISTORY OF PRESENT ILLNESS: I saw him resting comfortably in bed, he slept well, he is feeling better, in good spirits, no complaints. He is excited about going home today. He is going to go back to [place]. He has got his prescriptions for his Bactrim. He has regular medications at home. He has no complaints. PHYSICAL EXAMINATION: VITAL SIGNS: He has 97.3 temp, 83 pulse, 150/88 blood pressure, 20 respiratory rate, 92% O2 sat on room air. HEENT: Head is normocephalic, atraumatic. HEART: Regular rate. LUNGS: Decreased breath sounds, but clear. ABDOMEN: Soft. EXTREMITIES: Paralyzed. He has an infection, which he is now on Bactrim DS. He has a sacral infection with UTI. LABORATORY DATA: He has 10.1 white count 11.1 hemoglobin, 35.4 hematocrit with 302 platelets. He has 145 sodium, potassium is 4, BUN 11, creatinine 1.3, GFR is 58, triglycerides 78, calcium is 9.2. Total bili is 0.6, AST is 39, ALT is 36, alk phos 117, total protein is 7.2. He is excited about getting out of the hospital here. He wants to go home. He will follow up with his doctors in [place]. Saeed Nettles DO MTDD
== END 2017-12-16 12:35 | disposition home or self-care (01) | DRG 690 ==
LOC: ED 08:56 → ERH 10:56 → 5RNO 12:46
PROVIDERS: ADMIT Family Medicine; ATTEND Family Medicine
DX: N39.0 Urinary tract infection, site not specified (principal); L89.319 Pressure ulcer of right buttock, unspecified stage; F05 Delirium due to known physiological condition; G82.20 Paraplegia, unspecified; L03.115 Cellulitis of right lower limb; T83.518A Infection and inflammatory reaction due to other urinary catheter, initial encounter; F32.89 Other specified depressive episodes; N49.2 Inflammatory disorders of scrotum; B96.20 Unspecified Escherichia coli [E. coli] as the cause of diseases classified elsewhere; Z79.01 Long term (current) use of anticoagulants; Z79.899 Other long term (current) drug therapy; Z80.1 Family history of malignant neoplasm of trachea, bronchus and lung; Z87.440 Personal history of urinary (tract) infections; Z93.3 Colostomy status; Z90.49 Acquired absence of other specified parts of digestive tract; Z88.5 Allergy status to narcotic agent; Z87.892 Personal history of anaphylaxis; R40.2412 Glasgow coma scale score 13-15, at arrival to emergency department; B95.62 Methicillin resistant Staphylococcus aureus infection as the cause of diseases classified elsewhere